=== PATIENT | male | born 1965 | race Two or more races ===

== ENCOUNTER 2025-01-09 07:35 | Day surgery (SDC) | payer MEDICAID, SELFPAY ==
[2025-01-08 11:19] VITALS: BMI 29.9
[2025-01-09] VITALS (13 sets, daily range): BP systolic 112–149; BP diastolic 72–94; PULSE 69–88; RESP 12–20; TEMP 36.2–36.3; O2SAT 95–100; BMI 32.5
[2025-01-09] MEDS: MIDAZOLAM INJ 1 MG/ML VIAL 2 ML (ASD USE ONLY) 2 MG IV (08:33)
[2025-01-09] MEDS: fentaNYL CIT INJ 50 mCg/ML AMP 2ML (ASD USE ONLY) 25 MCG IV (08:33)
[2025-01-09] MEDS: DiphenhydrAMINE INJ 50 MG/ML VIAL 25 MG IV (08:33)
== END 2025-01-09 09:30 | disposition home or self-care (01) ==
PROVIDERS: PCP Family Medicine; Referring Provider Surgery; Visit Provider Surgery
PROC: 0DBE8ZX Excision of Large Intestine, Via Natural or Artificial Opening Endoscopic, Diagnostic (ICD-10-PCS; CPT 45380; principal; 2025-01-09 08:30)
DX: K64.1 Second degree hemorrhoids (principal)
CPT/HCPCS: 45378; J1200; J2250; J3010